=== PATIENT | female | born 1970 | race Caucasian/White ===

== ENCOUNTER → 2021-01-16 | Outpatient (CLI) | payer OTHER ==
[~2021-01-16] MED LIST: ALBUTEROL2.5 MG/3 M INH; CRESTOR40 MG PO; DAILY VALUE1 EACH PO; DITROPAN 5 MG TA5 MG PO; DOCUSATE SODIU250 MG PO; ESTRADIOL TOP; HYDROCODONE-AC1 EACH PO; HYZAAR 100-12.1 EACH PO; IBUPROFEN600 MG PO; ISOSORBIDE MONO30 MG PO; NITROSTAT 0.40.4 MG SL; RANEXA500 MG PO; VENTOLIN HFA 66.7 GM INH; VITAMIN D21250 MCG PO; ZOFRAN 4 MG TAB4 MG PO
[2021-01-16 12:21] LABS: RED BLOOD COUNT 4.62 M/UL (4.00-5.10); WHITE BLOOD COUNT 12.2 K/UL (4.5-11.0)
[2021-01-16 12:41] LABS: BUN/CREATININE RATIO 15 (0-10)
== END ==
LOC: OPSV2 01-14 09:00
PROVIDERS: Anesthesiology; Obstetrics & Gynecology
DX: Z01.818 Encounter for other preprocedural examination (principal); R32 Unspecified urinary incontinence
CPT/HCPCS: 36415; 71046; 80048; 81001; 85025; 93005

== ENCOUNTER 2021-01-21 06:33 | Day surgery (SDC) | payer OTHER ==
[~2021-01-21] VITALS: Ht 170.2 cm; Wt 104.3 kg
[~2021-01-21 06:33] MED LIST changes: -DITROPAN 5 MG TA5 MG PO; -DOCUSATE SODIU250 MG PO; -HYDROCODONE-AC1 EACH PO; -IBUPROFEN600 MG PO; -ZOFRAN 4 MG TAB4 MG PO
[2021-01-21] MEDS ORDERED: IBUPROFEN600 MG PO (11:50)
[2021-01-21] MEDS ORDERED: ZOFRAN 4 MG TAB4 MG PO (11:50)
[2021-01-21] MEDS ORDERED: DOCUSATE SODIU250 MG PO (11:50)
[2021-01-21] MEDS ORDERED: HYDROCODONE-AC1 EACH PO (11:50)
--- NOTE | 2021-01-22 14:55 | NUR ---
1145 Patient straight cath'd 950ml urine return noted. Dr Howe informed, stated to encourage fluids & continue to try to void.
[2021-01-22] MEDS ORDERED: DITROPAN 5 MG TA5 MG PO (17:53)
== END 2021-01-22 19:54 | disposition home or self-care (01) ==
LOC: OR 06:33 → M/S 14:40 → OR 01-22 19:54
DX: N87.0 Mild cervical dysplasia (principal); N81.10 Cystocele, unspecified; I10 Essential (primary) hypertension; E78.5 Hyperlipidemia, unspecified; M19.90 Unspecified osteoarthritis, unspecified site; Z82.49 Family history of ischemic heart disease and other diseases of the circulatory system; Z80.41 Family history of malignant neoplasm of ovary; Z87.891 Personal history of nicotine dependence; J45.909 Unspecified asthma, uncomplicated; Z79.899 Other long term (current) drug therapy; Z90.711 Acquired absence of uterus with remaining cervical stump
CPT/HCPCS: 94664; 94760; C1769; J0690; J1170; J1885; J2250; J2270; J2405; J2710; J3010; J7030; J7050; J7120

== ENCOUNTER → 2021-03-05 | Outpatient (CLI) | payer OTHER ==
[~2021-03-05] MED LIST changes: +DITROPAN 5 MG TA5 MG PO; +DOCUSATE SODIU250 MG PO; +HYDROCODONE-AC1 EACH PO; +IBUPROFEN600 MG PO; +ZOFRAN 4 MG TAB4 MG PO
[2021-03-06 13:14] LABS: RHEUMATOID ARTHRITIS FACTOR <10.0 IU/mL (0.0-13.9)
[2021-03-08 00:09] LABS: CCP ANTIBODIES IGG/IGA 6 units (0-19)
== END ==
LOC: RAD 10:49
PROVIDERS: Internal Medicine
DX: M25.561 Pain in right knee (principal); R76.8 Other specified abnormal immunological findings in serum; D89.89 Other specified disorders involving the immune mechanism, not elsewhere classified
CPT/HCPCS: 36415; 73560; 83520; 85652; 86140; 86200; 86431

== ENCOUNTER → 2021-08-08 | Outpatient (CLI) | payer OTHER | LOC: KOH-I 15:48 | DX: S83.241A Other tear of medial meniscus, current injury, right knee, initial encounter (principal); R93.7 Abnormal findings on diagnostic imaging of other parts of musculoskeletal system | CPT/HCPCS: 73721 ==

== ENCOUNTER → 2022-05-05 | Outpatient (CLI) | payer OTHER | LOC: EXRD 10:53 | DX: M54.50 Low back pain, unspecified (principal); M47.816 Spondylosis without myelopathy or radiculopathy, lumbar region | CPT/HCPCS: 72100 ==